=== PATIENT | female | born 1985 | race Two or more races ===

== ENCOUNTER 2017-10-19 19:11 | Emergency (ER) | payer OTHER ==
[2017-10-19] MEDS: DIPHTH,PERTUSS(ACELL),TET TOX 0.5 ML DISP.SYRIN. VAX IM (19:28)
== END 2017-10-19 19:55 | disposition home or self-care (01) ==
LOC: ER 19:11
DX: S91.331A Puncture wound without foreign body, right foot, initial encounter (principal); W45.0XXA Nail entering through skin, initial encounter; Y93.89 Activity, other specified; Y99.8 Other external cause status; Y92.89 Other specified places as the place of occurrence of the external cause
CPT/HCPCS: 90471; 90715; 99283-25